=== PATIENT | female | born 2000 | race Caucasian/White ===

== ENCOUNTER → 2023-08-24 08:07 | Outpatient (BNVA) | payer BC, MEDICAID, SELFPAY | PROVIDERS: Family Provider Nurse Practitioner Family; PCP Nurse Practitioner Family; Visit Provider Nurse Practitioner Women's Health | DX: Z34.90 Encounter for supervision of normal pregnancy, unspecified, unspecified trimester (principal); Z3A.14 14 weeks gestation of pregnancy | CPT/HCPCS: 80307; 81000; 84439; 84443; 84481; 85025; 86592; 86762; 86803; 86850; 86900; 87086; 87340; 87491; 87591; 87806 ==

== ENCOUNTER → 2023-09-06 11:19 | Outpatient (BNVA) | payer BC, MEDICAID, SELFPAY | PROVIDERS: Family Provider Nurse Practitioner Family; PCP Nurse Practitioner Family; Visit Provider Obstetrics & Gynecology | DX: Z3A.14 14 weeks gestation of pregnancy (principal); Z34.00 Encounter for supervision of normal first pregnancy, unspecified trimester | CPT/HCPCS: 84315; 87624 ==

== ENCOUNTER → 2023-10-05 13:20 | Outpatient (BNVA) | payer BC, MEDICAID, SELFPAY | PROVIDERS: Family Provider Nurse Practitioner Family; PCP Nurse Practitioner Family; Visit Provider Obstetrics & Gynecology | DX: Z36.87 Encounter for antenatal screening for uncertain dates (principal) | CPT/HCPCS: 76805 ==

== ENCOUNTER → 2023-10-13 12:44 | Outpatient (BNVA) | payer BC, MEDICAID, SELFPAY | PROVIDERS: Family Provider Nurse Practitioner Family; PCP Nurse Practitioner Family; Visit Provider Obstetrics & Gynecology | DX: Z3A.14 14 weeks gestation of pregnancy (principal); Z34.90 Encounter for supervision of normal pregnancy, unspecified, unspecified trimester | CPT/HCPCS: 84315; 87086 ==

== ENCOUNTER → 2023-11-04 12:32 | Outpatient (BNVA) | payer BC, MEDICAID, SELFPAY | PROVIDERS: Family Provider Nurse Practitioner Family; PCP Nurse Practitioner Family; Visit Provider Nurse Practitioner Women's Health | DX: Z34.90 Encounter for supervision of normal pregnancy, unspecified, unspecified trimester | CPT/HCPCS: 76816; 84315 ==

== ENCOUNTER → 2023-12-01 07:53 | Outpatient (BNVA) | payer BC, MEDICAID, SELFPAY | PROVIDERS: Family Provider Nurse Practitioner Family; PCP Nurse Practitioner Family; Visit Provider Obstetrics & Gynecology | DX: Z3A.24 24 weeks gestation of pregnancy (principal); Z34.92 Encounter for supervision of normal pregnancy, unspecified, second trimester | CPT/HCPCS: 82950; 84315 ==

== ENCOUNTER → 2023-12-07 09:20 | Outpatient (BNVA) | payer BC, MEDICAID, SELFPAY | PROVIDERS: Family Provider Nurse Practitioner Family; PCP Nurse Practitioner Family; Visit Provider Obstetrics & Gynecology | DX: Z36.9 Encounter for antenatal screening, unspecified (principal) | CPT/HCPCS: 76816 ==

== ENCOUNTER 2024-01-11 14:45 | Outpatient (CLI) | payer BC, MEDICAID, SELFPAY ==
[2024-01-11 15:03] VITALS: BMI 38.0
[2024-01-11 15:12] VITALS: BP 140/77; PULSE 89
[2024-01-11 15:31] VITALS: BP 126/74; PULSE 100
[2024-01-11 15:52] VITALS: BP 128/79; PULSE 97
== END 2024-01-11 16:08 | disposition home or self-care (01) ==
LOC: OPOB 14:55 → OBGYN 15:01
PROVIDERS: Family Provider Nurse Practitioner Family; PCP Nurse Practitioner Family; Visit Provider Obstetrics & Gynecology
DX: O26.899 Other specified pregnancy related conditions, unspecified trimester (principal); Z3A.00 Weeks of gestation of pregnancy not specified; R80.9 Proteinuria, unspecified
CPT/HCPCS: 59025; 84315; 99211

== ENCOUNTER → 2024-01-25 09:52 | Outpatient (BNVA) | payer BC, MEDICAID, SELFPAY | PROVIDERS: Family Provider Nurse Practitioner Family; PCP Nurse Practitioner Family; Visit Provider Obstetrics & Gynecology | DX: Z34.90 Encounter for supervision of normal pregnancy, unspecified, unspecified trimester (principal) | CPT/HCPCS: 84315; 87081 ==

== ENCOUNTER 2024-02-08 15:20 | Outpatient (CLI) | payer BC, MEDICAID, SELFPAY ==
[2024-02-08 15:34] VITALS: BP 145/83; PULSE 77; RESP 16; TEMP 36.2; O2SAT 98
[2024-02-08 15:38] VITALS: BMI 39.1
[2024-02-08 15:49] VITALS: BP 147/80; PULSE 87
[2024-02-08 16:04] VITALS: BP 146/82; PULSE 81
[2024-02-08 16:19] VITALS: BP 145/81; PULSE 82
== END 2024-02-08 17:03 | disposition home or self-care (01) ==
LOC: OPOB 15:22 → OBGYN 15:32
PROVIDERS: Family Provider Nurse Practitioner Family; PCP Nurse Practitioner Family; Visit Provider Obstetrics & Gynecology
DX: O16.9 Unspecified maternal hypertension, unspecified trimester (principal); Z3A.00 Weeks of gestation of pregnancy not specified
CPT/HCPCS: 59025; 99211

== ENCOUNTER 2024-02-08 19:20 | Outpatient (CLI) | payer BC, MEDICAID, SELFPAY ==
[2024-02-08] VITALS (10 sets, daily range): BP systolic 96–135; BP diastolic 54–84; PULSE 78–100; RESP 16; BMI 39.1
[2024-02-08 20:15] LABS: Basophils % 0.4 %; Eosinophils % 0.4 %; Hematocrit 33.4 % (36-47); Lymphocytes # 1.6 10^3/uL (0.8-4.8); Lymphocytes % 14.5 %; Mean Corpuscular HGB Conc 34.4 g/dL (30-55); Mean Corpuscular Hemoglobin 31.6 pg (27-33); Mean Corpuscular Volume 91.8 fl (85-98); Mean Platelet Volume 10.4 fL (7.4-10.4); Monocytes # 0.7 10^3/uL (0.2-0.9); Monocytes % 5.9 %; Neutrophils # 8.85 10^3/uL (1.8-7.7); Neutrophils % 78.4 %; Nucleated Red Blood Cells % 0 %; Platelet Count 268 10^3/cmm (157-399); Red Blood Count 3.64 10^6/uL (3.85-5.65); Red Cell Distribution Width 13.4 % (12.1-15.1); White Blood Count 11.26 10^3/uL (3.29-11.43)
[2024-02-08 20:44] LABS: Add Urine Microscopic? YES; Bilirubin Urine Neg (Negative); Blood Urine Neg (Negative); Glucose Urine UA Norm (Normal); Ketones Urine 2+ (Negative); Leukocyte Esterase Urine Negative (Negative); Nitrate Urine Negative (Negative); Protein Urine 1+ (Negative); Urine Appearance Cloudy (CLEAR); Urine Color Yellow (Yellow); Urobilinogen Urine 1 mg/dL (Negative); pH Urine 5 (5-7)
[2024-02-08 20:45] LABS: Add Urine Culture? No; Bacteria Urine 3+ /hpf; Mucus Urine 2+ /hpf; RBC Urine 0-4 /hpf (0-2); Squamous Epithelial Cell Urine 25-40 /hpf (0-5); WBC Urine 0-4 /hpf (0-5)
[2024-02-08 20:52] LABS: Alanine Aminotransferase 6 U/L (0-33); Albumin Level 3.7 g/dL (3.5-5.2); Alkaline Phosphatase 219 U/L (35-105); Anion Gap 13.5 (5-19); Aspartate Amino Transferase 17 U/L (0-32); Blood Urea Nitrogen 8 mg/dL (6-20); Calcium 9.4 mg/dL (8.5-10.5); Carbon Dioxide 21 mmol/L (22-29); Chloride 106 mmol/L (98-107); Creatinine Clr Calc Pharmacy 208.4465; Globulin 2.9 g/dL (1.3-4.6); Glomerular Filtration Rate 155.7 mL/min (90-130); Glucose 122 mg/dL (65-115); Osmolality Calculated 284 mOsm/kg (285-295); Potassium 3.5 mmol/L (3.5-5.1); Sodium 137 mmol/L (136-145); Total Bilirubin 0.2 mg/dL (0.15-1.2); Total Protein 6.6 g/dL (6.6-8.7); Uric Acid 4.9 mg/dL (2.4-5.7)
[2024-02-08 20:58] LABS: Urine Creatinine 370 mg/dL (28-217)
[2024-02-08 21:05] LABS: UPRO/UCREAT Ratio 0.24 mg/mg CR; Urine Protein Random 89 mg/dL
[2024-02-08] MEDS: NIFEdipine 10 mg Capsule 30 MG PO (22:08)
== END 2024-02-08 23:22 | disposition home or self-care (01) ==
LOC: OPOB 19:33 → OBGYN 23:12
PROVIDERS: Obstetrics & Gynecology; Family Provider Nurse Practitioner Family; PCP Nurse Practitioner Family; Visit Provider Obstetrics & Gynecology
DX: O26.899 Other specified pregnancy related conditions, unspecified trimester (principal); Z3A.00 Weeks of gestation of pregnancy not specified
CPT/HCPCS: 36415; 59025; 80053; 81001; 82570; 84156; 84315; 84550; 85025; 99211

== ENCOUNTER 2024-02-16 11:23 | Inpatient (IN) | payer BC, MEDICAID, SELFPAY ==
[2024-02-15] VITALS (32 sets, daily range): BP systolic 108–141; BP diastolic 56–94; PULSE 66–100; RESP 15; TEMP 36.5–36.7; BMI 39.6
[2024-02-15 18:19] LABS: Basophils % 0.2 %; Eosinophils % 0.3 %; Hematocrit 35.9 % (36-47); Lymphocytes # 1.6 10^3/uL (0.8-4.8); Lymphocytes % 12.6 %; Mean Corpuscular HGB Conc 34.3 g/dL (30-55); Mean Corpuscular Hemoglobin 31.5 pg (27-33); Mean Corpuscular Volume 91.8 fl (85-98); Mean Platelet Volume 10.5 fL (7.4-10.4); Monocytes # 0.8 10^3/uL (0.2-0.9); Monocytes % 6.3 %; Neutrophils # 9.87 10^3/uL (1.8-7.7); Neutrophils % 80.3 %; Nucleated Red Blood Cells % 0 %; Platelet Count 277 10^3/cmm (157-399); Red Blood Count 3.91 10^6/uL (3.85-5.65); Red Cell Distribution Width 13.5 % (12.1-15.1)
--- NOTE | 2024-02-15 18:50 | P.HP_ITS ---
Providers/Chief Complaint 2 Admitting Physician: Ryan Andrews MD Primary HORSE RACETRACK MANAGER: Ryan Andrews MD Primary Care Provider: WARD Mcgee Chief Complaint: Monitoring HPI HORSE RACETRACK MANAGER History of Present Illness Smitha Sheehan is a 23 year old female G1 EDC February 19, 2024 At 39 w 3 d No c/o + movements No headaches, blurry vision, abdominal pain No uterine contractions, fluid leakage Present Details : 1 Para: 0 Labs Rubella: Immune RPR: Negative GBS: Positive Medications/Allergies Home Medications Medication Instructions Recorded Confirmed Last Taken Type sertraline 50 mg tablet 50 mg PO DAILY 11/04/23 02/15/24 02/08/24 History Allergies Allergy/AdvReac Type Severity Reaction Status Date / Time No Known Allergies Allergy Verified 02/15/24 11:09 PFSH HORSE RACETRACK MANAGER 2 PFSH: Family History Denies family history of Colon cancer Ovarian cancer Diabetes Heart disease Breast cancer Hypertension Uterine cancer Thyroid disease Social History Smoking and tobacco/nicotine status: never used tobacco/nicotine History History History 2 1 Term 0 Miscarriages/Ectopic Living Children Care TYRA Calculator 2 Estimated Delivery Date Method Current WG Current Estimate 02/19/24 LMP (Certain) 39w 4d Vitals/I&O/Wt Last Vital Signs Temp 98.1 F 02/15/24 23:20 Pulse 64 02/16/24 03:25 Resp 15 02/15/24 15:51 BP 118/67 02/16/24 03:25 O2 Del Method Room Air 02/16/24 01:35 02/15/24 02/15/24 02/16/24 14:59 22:59 06:59 Intake Total 9.850 / 9.850 1020.833 / 1030.683 Balance 9.850 / 9.850 1020.833 / 1030.683 Weight last 48 hrs Weight 231 lb Physical Exam 2 Narrative: Weight 231 lbs; 5?4? BPs 138 / 88, 139 / 83, 140 / 86, 134 / 85 General: comfortable, awake, alert Lungs: clear Cor: RRR Abd: nontender Cervix: 2 cm / 50 % / -3 / posterior Ext: 2 + edema External monitor: heart tracing good variability, + accelerations Data 02/15/24 18:05 Results Labs OB ([facility]): 2 Obstetrics US 12/07/23 Blood Type A Positive 02/15/24 Antibody Screen Negative 02/15/24 Hct 35.9 % (36-47) L 02/15/24 Hgb 12.30 g/dL (11.27-16.99) 02/15/24 Rho(D) Type Rh positive 02/15/24 Plt Count 277 10^3/cmm (157-399) 02/15/24 Hep Bs Antigen Non-reactive (Nonreactive) 08/24/23 Hepatitis C Antibody Non-reactive (Nonreactive) 08/24/23 Rubella IgG Antibody 195.0 IU/mL (0.0-10.0) H 08/24/23 RPR Nonreactive (Nonreactive) 08/24/23 HIV 1&2 Ab & HIV 1 Ag Non-reactive (Non-Reactiv) 08/24/23 TSH 3.61 uIU/mL (0.27-4.20) 08/24/23 Free T4 1.03 ng/dL (0.82-1.77) 08/24/23 C.trachomatis RNA (TMA) Not detected (NOT DETECTED) N.gonorrhoeae RNA (TMA) Not detected (NOT DETECTED) T. vaginalis Amp RNA Not detected (NOT DETECTED) 08/24/23 Chlamydia/GC Comment See note 08/24/23 Cystic Fibrosis Screen Negative 08/24/23 Glucose 1 Hr 50 gm 130 mg/dL (85-140) 12/01/23 Uric Acid 4.9 mg/dL (2.4-5.7) 02/08/24 Urine Opiates Screen Negative ng/mL (Negative) 08/24/23 Ur Barbiturates Screen Negative ng/mL (Negative) 08/24/23 Ur Phencyclidine Scrn Negative ng/mL (Negative) 08/24/23 Ur Amphetamines Screen Negative ng/mL (Negative) 08/24/23 U Benzodiazepines Scrn Negative ng/mL (Negative) 08/24/23 Urine Cocaine Screen Negative ng/mL (Negative) 08/24/23 U Marijuana (THC) Screen Negative ng/mL (Negative) 08/24/23 Micro Urine Specimen 10/13/23 Pap Smear Interpret See note 09/06/23 A&P Assessment and plan (1) : 39 w 3 d Elevated BPs, mild Patient at 39 w 3 d with consistent mildly elevated BPs No severe features Plan admit for labor induction Qualifiers: Weeks of gestation: 24 weeks Qualified Code(s): Z3A.24 - 24 weeks gestation of (2) GBS carrier: Plan start Abx per protocol when in active labor Attestations 2 Medical Necessity Statement*: patient at 39 w 3 d with elevated BPs, admitted for induction of labor Coding Level of Care Code Acute Code for Chg Fwd Diagnoses 24 weeks gestation of Z3A.24 Weeks of gestation: 24 weeks GBS carrier Z22.330 Time Spent (min) 60
[2024-02-15] MEDS: ampicillin 2,000 MG in sodium chloride 0.9% (plus) 50 ML 100 MG IV (18:59)
[2024-02-15] MEDS: dextrose 5%-lactated ringers 1,000 ML 125 ML IV (18:59)
[2024-02-15] MEDS: oxytocin 30 UNIT/500 ML BAG IV (18:59)
[2024-02-15] MEDS: ampicillin 1,000 MG in sodium chloride 0.9% (plus) 50 ML 100 MG IV (22:35)
[2024-02-16] VITALS (144 sets, daily range): BP systolic 94–212; BP diastolic 52–109; PULSE 57–196; RESP 16; TEMP 35.9–36.8; O2SAT 94–99
[2024-02-16] MEDS: ampicillin 1,000 MG in sodium chloride 0.9% (plus) 50 ML 100 MG IV ×4 (02:45→15:01)
[2024-02-16] MEDS: dextrose 5%-lactated ringers 1,000 ML 125 ML IV ×2 (02:46→13:52)
[2024-02-16] MEDS: fentaNYL 50 mcg/mL INJ 2mL IVP (09:04)
[2024-02-16] MEDS: lactated ringers 1,000 ML 999 ML IV (09:33)
[2024-02-16] MEDS: ondansetron 2 mg/ML SDV 2 mL 4 MG IVP ×2 (09:52→14:01)
--- NOTE | 2024-02-16 10:10 | P.ANESASSM_ITS ---
Pre-Anesthetic Assessment Height/Weight: Height 1.63 m Weight 104.78 kg Temp Pulse Resp BP Pulse Ox O2 Del Method 98.1 F 76 16 134/75 97 Room Air 02/15/24 23:20 02/16/24 10:32 02/16/24 09:04 02/16/24 10:32 02/16/24 10:30 02/16/24 06:58 Preop Diagnosis: IUP epidural Familial anesthetic complications: none Was Beta Earnest taken within 24 hours: N/A Was Clonidine taken within 24 hours: N/A Last Intake: 07:00 Social No alcohol and No tobacco Exam alert and oriented x 3 Airway Submandibular: within normal limits Cervical ROM: within normal limits Mallampati: Class II Dentition: full History/ROS No significant complaints CV/HEM PIH at the end of Anesthetic Plan ASA status: 2 Anesthesia: Anesthesia Evaluation, General and Regional (specify below) Medications/Allergies Home Medications Medication Instructions Recorded Confirmed Last Taken Type sertraline 50 mg tablet 50 mg PO DAILY 11/04/23 02/15/24 02/08/24 History Allergies Allergy/AdvReac Type Severity Reaction Status Date / Time No Known Allergies Allergy Verified 02/15/24 11:09 Current Medications Generic Name Dose Route Start Last Admin Trade Name Freq PRN Reason Stop Dose Admin Fentanyl 25 - 100 mcg 02/16/24 08:58 02/16/24 09:04 Fentanyl 50 Mcg/Ml Inj 2ml IVP 25 mcg Q1H PRN Administration SEVERE PAIN Dextrose/Lactated Ringer's 1,000 mls @ 125 mls/hr 02/15/24 18:00 02/16/24 02:46 Dextrose 5%-Lactated Ringers IV 125 mls/hr .Q8H BRI Administration Ampicillin Sodium 1,000 mg/ 50 mls @ 100 mls/hr 02/15/24 22:15 02/16/24 06:19 Sodium Chloride IV 100 mls/hr Q4H BRI Administration Protocol Oxytocin 30 unit in 500 mls @ 1 mls/hr 02/15/24 18:45 02/16/24 08:09 Pitocin IV 1 milliunit/min .Q24H BRI 1 mls/hr Titration Protocol 1 MILLIUNIT/MIN Lactated Ringer's 1,000 mls @ 999 mls/hr 02/16/24 09:06 02/16/24 09:33 Lactated Ringers IV 999 mls/hr .Q1H1M PRN Administration See label comments Ondansetron HCl 4 mg 02/15/24 17:52 02/16/24 09:52 Ondansetron 2 Mg/Ml Sdv 2 Ml IVP 4 mg Q4H PRN Administration NAUSEA AND VOMITING PFSH Anesthesia Family History Denies family history of Colon cancer Ovarian cancer Diabetes Heart disease Breast cancer Hypertension Uterine cancer Thyroid disease Social History Smoking and tobacco/nicotine status: never used tobacco/nicotine Female Reproductive History : 1 Data Anesthesia 02/15/24 18:05 Short CBC 02/15/24 Range/Units 18:05 WBC 12.30 H (3.29-11.43) 10^3/uL Hgb 12.30 (11.27-16.99) g/dL Hct 35.9 L (36-47) % MCV 91.8 (85-98) fl Plt Count 277 (157-399) 10^3/cmm Neut % (Auto) 80.3 % Neut # (Auto) 9.87 H (1.8-7.7) 10^3/uL Blood Bank 02/15/24 18:05 Blood Type A Positive Rho(D) Type Rh positive Antibody Screen Negative Cardiac Studies: 2 No Data to Display
--- NOTE | 2024-02-16 10:34 | ANES.PROC ---
Anesthesia Procedures Procedure/Date: 02/16/24 Epidural: Time Out Performed: Yes Consents Signed: Procedure Consent Consent: from patient, risks and benefits reviewed and patient agrees to proceed Lumbar Level: L3-L4 Epidural position: sitting Epidural procedure: sterile prep of area, 1% lidocaine to numb the area, 18 g needle, negative for paresthesia passed, neg for paresthesia, test dose given, 1.5% xylocaine 1:200k epi, placed PCEA, no systemic response, sterile dressing applied, L.U.D. no apparent complications and 0.2% Ropiavacaine @ mls/hr (13) Additional Comments: CAROL at 5.5, negative aspiration. taped at 12 at skin, several redirection attempts before CAROL obtained. pt tolerated well.
[2024-02-16] MEDS: ROPivacaine syringe 100 MG/50 ML SYRINGE 10 MG EPIDURAL (10:38)
[2024-02-16] MEDS: ROPivacaine syringe 100 MG/50 ML SYRINGE 13 MG EPIDURAL ×2 (13:49→15:40)
--- NOTE | 2024-02-16 14:50 | PM.MISC ---
Miscellaneous Note Purpose of Documentation: Pain Note: Called for L lower quadrant pain. Patient states she had no pain after epidural placement, but in the last two hours has been L Lower quadrant pain. Bupivicaine 0.25% 10 cc and 5 cc bolus from epidural pump administered. Bolus dose increased to 6 cc. Only mild improvement. Upon further questioning, it became apparent the patient is experiencing this pain constantly, even when she is not having contractions. Multiple possible etiologies, patient may be experiencing pain from positioning, position may be contributing, possible nerve root irritation from epidural or epidural catheter manipulation. Will continue to monitor patient.
--- NOTE | 2024-02-16 18:10 | PM.DELIVERY ---
Delivery Note: Date of delivery: February 16, 2024 Pre-delivery diagnoses: 39 w 3 d elevated BPs induction of labor Post-delivery diagnoses: 39 w 3 d elevated BPs induction of labor vaginal delivery repair of second-degree perineal and vaginal lacerations Procedure: induction of labor vaginal delivery repair of second-degree perineal and vaginal lacerations Op report anesthesia: Epidural Delivering Physician: Ryan Andrews MD Estimated blood loss (mL): 300 Findings: , vigorous female infant Cord gases and blood obtained Normal placenta and cord Second-degree perineal / vaginal lacerations repaired in layers EBL: 300 cc No complications Pre-Delivery Course: normal labor course Delivery: vaginal Post-Delivery Status: good History History History 1 Term 0 Miscarriages/Ectopic Living Children A&P Assessment and plan (1) Vaginal delivery: plan care Coding Level of Care Code Acute Code for Chg Fwd Diagnoses Vaginal delivery O80 Time Spent (min) 60
[2024-02-16] MEDS: benzocaine-menthol 78 gm Canister 1 SPRAY TOPICAL (20:20)
[2024-02-16] MEDS: ibuprofen 800 mg tablet PO (20:20)
[2024-02-17] VITALS (7 sets, daily range): BP systolic 125–140; BP diastolic 77–87; PULSE 73–86; RESP 15–16; TEMP 36.4–37.2; O2SAT 97–99
[2024-02-17 07:26] LABS: Hematocrit 30.8 % (36-47); Mean Corpuscular HGB Conc 33.1 g/dL (30-55); Mean Corpuscular Hemoglobin 31.1 pg (27-33); Mean Corpuscular Volume 93.9 fl (85-98); Mean Platelet Volume 10.4 fL (7.4-10.4); Platelet Count 281 10^3/cmm (157-399); Red Blood Count 3.28 10^6/uL (3.85-5.65); Red Cell Distribution Width 13.8 % (12.1-15.1); White Blood Count 14.32 10^3/uL (3.29-11.43)
[2024-02-17] MEDS: docusate sodium 100 mg Capsule PO (08:29)
[2024-02-17] MEDS: ibuprofen 800 mg tablet PO ×2 (08:29→15:12)
[2024-02-17] MEDS: PRENATAL VIT NO.130/IRON/FOLIC 1 EACH TABLET PO (08:29)
--- NOTE | 2024-02-17 10:13 | ANE.PACU2 ---
Inpatient post-anesthesia follow up: Airway intact: Yes Vital signs: Temperature 98.0 F Pulse Rate 73 Respiratory Rate 16 Blood Pressure 133/84 Pulse Oximetry 99 Oxygen Delivery Me thod Room Air Oxygen Flow Rate Fraction of Inspir ed Oxygen Hydration adequate: Yes Nausea and vomiting: No Pain level: 1 Mental status: Baseline Additional Comments: No residual L groin/quadrant pain Epidural Start/End: Epidural Start Date: 02/16/24 Epidural Start Time: 10:10 Epidural End Date: 02/16/24 Epidural End Time: 18:38
--- NOTE | 2024-02-17 12:15 | P.PN_ITS ---
[employer] Subjective 2 Subjective: Interval history: no c/o no bleeding, pain eating, voiding, ambulating well caring for without any problems Labor: Station: +1 Amniotic Membrane Status: Ruptured Monitor Mode: External Contraction Pattern: Regular Vitals/I&O/Wt Last Vital Signs Temp 98.9 F 02/17/24 19:53 Pulse 86 02/17/24 19:53 Resp 16 02/17/24 19:53 BP 140/77 02/17/24 19:53 Pulse Ox 98 02/17/24 19:53 O2 Del Method Room Air 02/17/24 19:43 Physical Exam 2 Narrative: afebrile, VS normal comfortable, awake, alert Abd: soft, nontender. fundus firm Ext: no edema; nontender Urinary Catheter Management: Oquendo: Cath Placed During This Visit: yes, but has since been removed by the nurse Reason for Continuing Indwelling Catheter: Decision to DC Catheter Urinary Catheter Date of Insertion: 02/16/24 Urinary Catheter Time of Insertion: 11:05 Date Urinary Catheter Removed: 02/16/24 Time Urinary Catheter Discontinued: 17:00 Data 02/17/24 07:13 A&P Assessment and plan (1) Vaginal delivery: PPD #1 doing well discharge to home today instructions and precautions given call/return if fever, chills, headache, blurry vision, nausea, vomiting, abdominal pain; vaginal bleeding or discharge; shortness of breath, chest pain, leg pains or swelling; inability to void, perineal pain or swelling; feelings of depression or mood changes; thoughts of suicide or harming others; inability to care for baby. f/u in 6 weeks or PRN Attestations 2 Medical Necessity Statement*: patient s/p vaginal delivery, plan to discharge to home today Coding Level of Care Code Acute Code for Chg Fwd Diagnoses Vaginal delivery O80 Time Spent (min) 20
--- NOTE | 2024-02-17 12:20 | P.DS_ITS ---
Discharge Providers CUSTOMER SUCCESS SPECIALIST Date of Admission: 02/16/24 11:23 Date of Discharge: 02/17/24 Attending Provider at Admission: Ryan Andrews MD Attending Provider at Discharge: Ryan Anderws MD Consults: none Primary CUSTOMER SUCCESS SPECIALIST: Ryan Andrews MD Primary Care Provider: WARD Mcgee Diagnoses at Discharge Discharge Diagnosis (1) Vaginal delivery: Details from hospital stay: 23 y.o. G1 at 39 w 3 d noted to have persistent mildly elevated BPs no symptoms of headache, blurry vision admitted for induction of labor cervix was at 2 cm on admission pitocin was given patient progressed to complete dilatation delivered vaginally a vigorous with repair of second-degree perineal and vaginal lacerations patient did well without any complications patient was discharged to home on the first day Status: Acute Reason for Visit Reason for Visit: Monitoring Brief History: 23 y.o. G1 at 39 w 3 d noted to have persistent mildly elevated BPs no symptoms of headache, blurry vision admitted for induction of labor cervix was at 2 cm on admission Hospital Course Hospital Course 23 y.o. G1 at 39 w 3 d noted to have persistent mildly elevated BPs no symptoms of headache, blurry vision admitted for induction of labor cervix was at 2 cm on admission pitocin was given patient progressed to complete dilatation delivered vaginally a vigorous infant with repair of second-degree perineal and vaginal lacerations patient did well without any complications patient was discharged to home on the first day Information Peripartum Data: Delivery Method: Vaginal Laceration description: Perineal - 2nd Degree Episiotomy description: None complications: none Physical Exam Narrative: afebrile, VS normal comfortable, awake, alert Abd: soft, nontender. fundus firm Ext: no edema; nontender Urinary Catheter Management: Oquendo: Cath Placed During This Visit: yes, but has since been removed by the nurse Reason for Continuing Indwelling Catheter: Decision to DC Catheter Urinary Catheter Date of Insertion: 02/16/24 Urinary Catheter Time of Insertion: 11:05 Date Urinary Catheter Removed: 02/16/24 Time Urinary Catheter Discontinued: 17:00 History History History 1 Term 0 Miscarriages/Ectopic Living Children Discharge Data Studies Completed and Pending Laboratory Results WBC 14.32 10^3/uL (3.29-11.43) H 02/17/24 07:13 RBC 3.28 10^6/uL (3.85-5.65) L 02/17/24 07:13 Hgb 10.20 g/dL (11.27-16.99) L 02/17/24 07:13 Hct 30.8 % (36-47) L 02/17/24 07:13 MCV 93.9 fl (85-98) 02/17/24 07:13 MCH 31.1 pg (27-33) 02/17/24 07:13 MCHC 33.1 g/dL (30-55) 02/17/24 07:13 RDW 13.8 % (12.1-15.1) 02/17/24 07:13 Plt Count 281 10^3/cmm (157-399) 02/17/24 07:13 MPV 10.4 fL (7.4-10.4) 02/17/24 07:13 Neut % (Auto) 80.3 % 02/15/24 18:05 Lymph % (Auto) 12.6 % 02/15/24 18:05 Citrus % (Auto) 6.3 % 02/15/24 18:05 Eos % (Auto) 0.3 % 02/15/24 18:05 Baso % (Auto) 0.2 % 02/15/24 18:05 Neut # (Auto) 9.87 10^3/uL (1.8-7.7) H 02/15/24 18:05 Lymph # (Auto) 1.6 10^3/uL (0.8-4.8) 02/15/24 18:05 Citrus # (Auto) 0.8 10^3/uL (0.2-0.9) 02/15/24 18:05 Eos # (Auto) 0.0 10^3/uL (0.0-0.8) 02/15/24 18:05 Baso # (Auto) 0.0 10^3/uL (0.0-0.1) 02/15/24 18:05 Nucleated RBC % (auto) 0 % 02/15/24 18:05 Nucleated RBCs # 0.0 /100WBC 02/15/24 18:05 Blood Type A Positive 02/15/24 18:05 Rho(D) Type Rh positive 02/15/24 18:05 Antibody Screen Negative 02/15/24 18:05 Procedures Performed induction of labor vaginal delivery repair of second-degree perineal and vaginal lacerations Vitals Last Vital Signs Temp 98.9 F 02/17/24 19:53 Pulse 86 02/17/24 19:53 Resp 16 02/17/24 19:53 BP 140/77 02/17/24 19:53 Pulse Ox 98 02/17/24 19:53 O2 Del Method Room Air 02/17/24 19:43 Results Labs OB ([facility]): Obstetrics US 12/07/23 Blood Type A Positive 02/15/24 Antibody Screen Negative 02/15/24 Hct 30.8 % (36-47) L 02/17/24 Hgb 10.20 g/dL (11.27-16.99) L 02/17/24 Rho(D) Type Rh positive 02/15/24 Plt Count 281 10^3/cmm (157-399) 02/17/24 Hep Bs Antigen Non-reactive (Nonreactive) 08/24/23 Hepatitis C Antibody Non-reactive (Nonreactive) 08/24/23 Rubella IgG Antibody 195.0 IU/mL (0.0-10.0) H 08/24/23 RPR Nonreactive (Nonreactive) 08/24/23 HIV 1&2 Ab & HIV 1 Ag Non-reactive (Non-Reactiv) 08/24/23 TSH 3.61 uIU/mL (0.27-4.20) 08/24/23 Free T4 1.03 ng/dL (0.82-1.77) 08/24/23 C.trachomatis RNA (TMA) Not detected (NOT DETECTED) N.gonorrhoeae RNA (TMA) Not detected (NOT DETECTED) T. vaginalis Amp RNA Not detected (NOT DETECTED) 08/24/23 Chlamydia/GC Comment See note 08/24/23 Cystic Fibrosis Screen Negative 08/24/23 Glucose 1 Hr 50 gm 130 mg/dL (85-140) 12/01/23 Uric Acid 4.9 mg/dL (2.4-5.7) 02/08/24 Urine Opiates Screen Negative ng/mL (Negative) 08/24/23 Ur Barbiturates Screen Negative ng/mL (Negative) 08/24/23 Ur Phencyclidine Scrn Negative ng/mL (Negative) 08/24/23 Ur Amphetamines Screen Negative ng/mL (Negative) 08/24/23 U Benzodiazepines Scrn Negative ng/mL (Negative) 08/24/23 Urine Cocaine Screen Negative ng/mL (Negative) 08/24/23 U Marijuana (THC) Screen Negative ng/mL (Negative) 08/24/23 Micro Urine Specimen 10/13/23 Pap Smear Interpret See note 09/06/23 Discharge Plan Discharge Patient Disposition: Home Condition: Stable Prescriptions: Continued sertraline 50 mg tablet 50 mg PO DAILY Discharge Orders: Discharge Order (Routine); Ordered 02/17/24 Ordered By: Ryan Andrews Referrals: Ryan Andrews MD [Physician] - 03/29/24 1:45 pm Discharge Diet: Usual diet Discharge Activity: Increase activity as tolerated Patient Instructions: Depression (DC), Bleeding (DC), Preeclampsia and Eclampsia After Delivery (GEN), OB Discharge Report, OB Food/Drug Interaction Guide, Opioid Safety, OB Home Care, OB Proud Parent Packet, OB Vaginal Deliveries - [facility] Discharge Attestations CUSTOMER SUCCESS SPECIALIST Time Spent in Discharge Care*: less than 30 min Coding Level of Care Code Acute Code for Chg Fwd Diagnoses Vaginal delivery O80 Time Spent (min) 20
== END 2024-02-17 19:53 | disposition home or self-care (01) | DRG 807 ==
LOC: OPOB 11:24 → OBGYN 11:24
PROVIDERS: Admitting Provider Obstetrics & Gynecology; PCP Nurse Practitioner Family; Visit Provider Obstetrics & Gynecology
DX: O99.824 Streptococcus B carrier state complicating childbirth (principal); Z37.0 Single live birth; Z3A.39 39 weeks gestation of pregnancy; O70.1 Second degree perineal laceration during delivery; R03.0 Elevated blood-pressure reading, without diagnosis of hypertension; O75.89 Other specified complications of labor and delivery
CPT/HCPCS: 36415; 51702; 59025; 59409; 84315; 85025; 85027; 86850; 86900; 96374; 96376; 99211; J0290; J2405; J2590; J2795; J3010; J7120; J7121

== ENCOUNTER 2024-05-18 22:50 | Inpatient (IN) | payer BC, MEDICAID, SELFPAY ==
[2024-05-18 22:51] VITALS: BP 155/115; PULSE 86; RESP 18; TEMP 36.7; O2SAT 99; BMI 30.9
--- NOTE | 2024-05-18 23:01 | ECG_ITS ---
[facility] Test Date: 2024-05-18 Pat Name: Smitha Sheehan Department: Room: Gender: Female Acds Block 1 Operator: : 2000 Requested By: Kalyn Alvarez Order Number: [id number] Gonsalves MD: Sanjeev Regan M.D. Measurements Intervals [place] Rate: 88 P: 24 MO: 135 QRS: -16 QRSD: 89 T: 31 QT: 323 QTc: 392 Interpretive Statements SINUS RHYTHM WITH SINUS ARRHYTHMIA VOLTAGE CRITERIA FOR LVH [MEETS CRITERIA IN ONE OF: R(aVL), S(V1), R(V5), R(V5/V6)+S(V1)] No previous ECG available for comparison Electronically Signed On 05-19-2024 20:23:15 CDT by Sanjeev Regan M.D. [id number]
--- NOTE | 2024-05-18 23:08 | PC.NURSE ---
officer stated in triage that [place] [address] talking about walking into traffic
[2024-05-18 23:15] LABS: Bilirubin Urine Negative (Negative); Blood Urine 3+ (Negative); Glucose Urine UA Negative (Normal); Ketones Urine Trace (Negative); Leukocyte Esterase Urine 2+ (Negative); Nitrate Urine Negative (Negative); Protein Urine 2+ (Negative); Urine Appearance Cloudy (CLEAR); Urine Color Yellow (Yellow); pH Urine 5.5 (5-7)
[2024-05-18 23:20] LABS: Bacteria Urine 2+ /hpf; Hyaline Casts Urine 2.87 /lpf; RBC Urine >100 /hpf (0-2); Specific Gravity, Urine 1.036 (1.005-1.030); WBC Urine 21-50 /hpf (0-5)
[2024-05-18 23:21] LABS: Add Urine Culture? No
[2024-05-18 23:22] LABS: Amphetamines Screen Urine Negative (Negative); Barbiturates Screen Urine Negative (Negative); Benzodiazepines Screen Urine Negative (Negative); Cocaine Screen Urine Negative (Negative); Opiate Screen Urine Negative (Negative); PCP Screen Urine Negative (Negative); THC Screen Urine Positive (Negative)
[2024-05-18 23:41] LABS: Basophils # 0.1 10^3/uL (0.0-0.1); Basophils % 0.9 %; Eosinophils % 0.4 %; Hematocrit 42.4 % (36-47); Lymphocytes # 1.7 10^3/uL (0.8-4.8); Lymphocytes % 16.7 %; Mean Corpuscular HGB Conc 32.8 g/dL (30-55); Mean Corpuscular Hemoglobin 29.5 pg (27-33); Mean Platelet Volume 9.2 fL (7.4-10.4); Monocytes # 0.6 10^3/uL (0.2-0.9); Monocytes % 5.7 %; Neutrophils # 7.91 10^3/uL (1.8-7.7); Neutrophils % 76.1 %; Nucleated Red Blood Cells % 0 %; Platelet Count 435 10^3/cmm (157-399); Red Blood Count 4.71 10^6/uL (3.85-5.65); Red Cell Distribution Width 13.5 % (12.1-15.1); White Blood Count 10.38 10^3/uL (3.29-11.43)
[2024-05-18 23:51] LABS: HCG, Serum Qual Negative (Negative)
[2024-05-19 00:07] LABS: Acetaminophen < 5.0 ug/mL (10-30); Alanine Aminotransferase 43 U/L (0-33); Alcohol Level < 10 mg/dL (0-10); Alkaline Phosphatase 112 U/L (35-105); Aspartate Amino Transferase 28 U/L (0-32); Blood Urea Nitrogen 17 mg/dL (6-20); Calcium 9.7 mg/dL (8.5-10.5); Carbon Dioxide 25 mmol/L (22-29); Chloride 104 mmol/L (98-107); Creatinine Clr Calc Pharmacy 114.0195; Globulin 3.3 g/dL (1.3-4.6); Glomerular Filtration Rate 89.7 mL/min (90-130); Glucose 105 mg/dL (65-115); Osmolality Calculated 296 mOsm/kg (285-295); Salicylate < 0.3 mg/dL (3-10); Sodium 142 mmol/L (136-145); Total Bilirubin 0.3 mg/dL (0.15-1.2); Total Protein 8.3 g/dL (6.6-8.7)
[2024-05-19 00:12] LABS: Thyroid Stimulating Hormone 3.23 uIU/mL (0.27-4.20)
--- NOTE | 2024-05-19 00:29 | W.ED.PSYCHS ---
HPI - Psych General: Chief Complaint: Psychiatric Symptoms Stated Complaint: MHE Time Seen by Provider: 05/18/24 22:54 History of Present Illness: 24-year-old female presents emergency room by ambulance with police. Apparently according to the police she had said during argument that she wanted to kill herself or thoughts of into traffic and that she may have overdosed on Zofran a couple days ago. The patient denies any of this. She says she may have said something when she was angry to try to get under her scan. Police have written an affidavit. Related Data Home Medications Medication Instructions Recorded Confirmed sertraline 50 mg tablet 50 mg PO DAILY 11/04/23 02/15/24 Allergies Allergy/AdvReac Type Severity Reaction Status Date / Time No Known Allergies Allergy Verified 02/15/24 11:09 Review of Systems Narrative: Constitutional symptoms: Negative except as documented in HPI. Skin symptoms: Negative except as documented in HPI. Eye symptoms: Negative except as documented in HPI. ENMT symptoms: Negative except as documented in HPI. Respiratory symptoms: Negative except as documented in HPI. Cardiovascular symptoms: Negative except as documented in HPI. Gastrointestinal symptoms: Negative except as documented in HPI. Genitourinary symptoms: Negative except as documented in HPI. Musculoskeletal symptoms: Negative except as documented in HPI. Neurologic symptoms: Negative except as documented in HPI. Psychiatric symptoms: Negative except as documented in HPI. Endocrine symptoms: Negative except as documented in HPI. [facility] ED PFSH: Medical History (Updated 05/19/24 @ 00:41 by Kalyn Davila MD) Vaginal delivery GBS carrier Family History Denies family history of Colon cancer Ovarian cancer Diabetes Heart disease Breast cancer Hypertension Uterine cancer Thyroid disease Social History Smoking and tobacco/nicotine status: never used tobacco/nicotine Female Reproductive History: Date of last menstrual period: 05/18/24 Physical Exam Narrative: EXAM NARRATIVE: General: Alert, no acute distress. Skin: Warm, dry. Head: Normocephalic, atraumatic. Neck: Supple, trachea midline. Eye: Extraocular movements are intact. Ears, nose, mouth and throat: mucosa moist. Cardiovascular: Regular, Normal peripheral perfusion. Respiratory: Lungs are clear to auscultation, respirations are non-labored, breath sounds are equal, Symmetrical chest wall expansion. Gastrointestinal: Soft, Nontender, Non distended Musculoskeletal: Normal ROM, no deformity. Neurological: Alert and oriented, No focal neurological deficit observed. Psychiatric: Cooperative, appropriate mood & affect. Course Vital Signs: Vital signs: Vital Signs Temperature 98.1 F 05/18/24 22:51 Pulse Rate 86 05/18/24 22:51 Respiratory Rate 18 05/18/24 22:51 Blood Pressure 155/115 05/18/24 22:51 Pulse Oximetry 99 05/18/24 22:51 [facility] - Psych Medical Decision Making Differential diagnosis: Patient with reported depression and suicidal ideation. concerns for infection, alcohol intoxication, cardiac issues or other medical problems prior to psychiatric admission. Workup: labwork, ekg ordered to evaluate the pathologies and to clear the patient medically prior to psychiatric admission Lab Review: Laboratory results were reviewed and interpreted by myself the emergency room physician. Lab review: - Medically cleared. - EKG shows no ischemic changes. - Blood alcohol level is negative, -Tylenol and salicylate levels are negative. - Drug screen is negative - No signs of infection, urinalysis clear and white count is not elevated - No anemia. - BUN and creatinine are within normal limits. Consultation: Consultation I spoke with Dr. Lindsey who is on-call for psychiatry who agrees to admission. Assessment and plan: Suicidal ideation Depression Urinary tract infection ?Cephalexin emergency room -Admission to neuropsychiatric unit for continued evaluation and treatment. - All lab work was reviewed and interpreted personally by myself, the ER physician - Evaluation and treatment of this problem were appropriate in the emergency setting Lab Data 05/18/24 23:33 05/18/24 23:33 Laboratory Results WBC 10.38 10^3/uL (3.29-11.43) 05/18/24 23: RBC 4.71 10^6/uL (3.85-5.65) 05/18/24 23:33 Hgb 13.90 g/dL (11.27-16.99) 05/18/24 23:33 Hct 42.4 % (36-47) 05/18/24 23:33 MCV 90.0 fl (85-98) 05/18/24 23: MCH 29.5 pg (27-33) 05/18/24 23:33 MCHC 32.8 g/dL (30-55) 05/18/24 23:33 RDW 13.5 % (12.1-15.1) 05/18/24 23:33 Plt Count 435 10^3/cmm (157-399) H 05/18/24 23:33 MPV 9.2 fL (7.4-10.4) 05/18/24 23:33 Neut % (Auto) 76.1 % 05/18/24 23: Lymph % (Auto) 16.7 % 05/18/24 23:33 Schuyler % (Auto) 5.7 % 05/18/24 23:33 Eos % (Auto) 0.4 % 05/18/24 23:33 Baso % (Auto) 0.9 % 05/18/24 23: Neut # (Auto) 7.91 10^3/uL (1.8-7.7) H 05/18/24 23: Lymph # (Auto) 1.7 10^3/uL (0.8-4.8) 05/18/24 23:33 [place]uyler # (Auto) 0.6 10^3/uL (0.2-0.9) 05/18/24 23:33 Eos # (Auto) 0.0 10^3/uL (0.0-0.8) 05/18/24 23: Baso # (Auto) 0.1 10^3/uL (0.0-0.1) 05/18/24 23:33 Nucleated RBC % (auto) 0 % 05/18/24 23: Nucleated RBCs # 0.0 /100WBC 05/18/24 23:33 Sodium 142 mmol/L (136-145) 05/18/24 23:33 Potassium 4.0 mmol/L (3.5-5.1) 05/18/24 23:33 Chloride 104 mmol/L (98-107) 05/18/24 23:33 Carbon Dioxide 25 mmol/L (22-29) 05/18/24 23:33 Anion Gap 17.0 (5-19) 05/18/24 23:33 BUN 17 mg/dL (6-20) 05/18/24 23:33 Creatinine 0.8 mg/dL (0.5-0.9) 05/18/24 23:33 GFR Calculation 89.7 mL/min (90-130) L 05/18/24 23: Glucose 105 mg/dL (65-115) 05/18/24 23: Calculated Osmolality 296 mOsm/kg (285-295) H 05/18/24 23:33 Calcium 9.7 mg/dL (8.5-10.5) 05/18/24: Total Bilirubin 0.3 mg/dL (0.15-1.2) 05/18/24 23: AST 28 U/L (0-32) 05/18/24 23: ALT 43 U/L (0-33) H 05/18/24 23: Alkaline Phosphatase 112 U/L (35-105) H 05/18/24 23: Total Protein 8.3 g/dL (6.6-8.7) 05/18/24 23: Albumin 5.0 g/dL (3.5-5.2) 05/18/24: Globulin 3.3 g/dL (1.3-4.6) 05/18/24 23: TSH 3.23 uIU/mL (0.27-4.20) 05/18/24 23:33 HCG, Qual Negative (Negative) 05/18/24 23: Urine Color Yellow (Yellow) 05/18/24 23:06 Urine Appearance Cloudy (CLEAR) A 05/18/24 23: Urine pH 5.5 (5-7) 05/18/24 23:06 Ur Specific [place] 1.036 (1.005-1.030) H 05/18/24 23:06 Urine Protein 2+ (Negative) A 05/18/24 23: Urine Glucose (UA) Negative (Normal) 05/18/24 23: Urine Ketones Trace (Negative) 05/18/24 23: Urine Blood 3+ (Negative) A 05/18/24 23: Urine Nitrate Negative (Negative) 05/18/24 23: Urine Bilirubin Negative (Negative) 05/18/24 23: Urine Urobilinogen 1.0 mg/dL (Negative) 05/18/24 23:06 Ur Leukocyte Esterase 2+ (Negative) A 05/18/24 23:06 Urine RBC >100 /hpf (0-2) H 05/18/24 23:06 Urine WBC 21-50 /hpf (0-5) H 05/18/24 23:06 Ur Squamous Epith Cells 11-20 /hpf (0-5) 05/18/24 23:06 Amorphous Sediment Not Reportable 05/18/24 23:06 Urine Bacteria 2+ /hpf (NONE) H 05/18/24 23:06 Hyaline Casts 2.87 /lpf 05/18/24 23:06 Salicylates < 0.3 mg/dL (3-10) L 05/18/24 23:33 Urine Opiates Screen Negative ng/mL (Negative) 05/18/24 23:06 Acetaminophen < 5.0 ug/mL (10-30) L 05/18/24 23:33 Ur Barbiturates Screen Negative ng/mL (Negative) 05/18/24 23:06 Ur Phencyclidine Scrn Negative ng/mL (Negative) 05/18/24 23:06 Ur Amphetamines Screen Negative ng/mL (Negative) 05/18/24 23:06 U Benzodiazepines Scrn Negative ng/mL (Negative) 05/18/24 23:06 Urine Cocaine Screen Negative ng/mL (Negative) 05/18/24 23:06 U Marijuana (THC) Screen Positive ng/mL (Negative) H 05/18/24 23:06 Ethyl Alcohol < 10 mg/dL (0-10) 05/18/24 23:33 All radiology interpretation(s) finalized by discharge Discharge Plan Discharge Patient Disposition: Admitted As Inpatient Clinical Impression: Depression, Suicidal ideation Condition: Stable Coding Level of Care Code ED [employer] for Issac Seals
[2024-05-19] MEDS: cephALEXin 500 mg Capsule PO (01:08)
--- NOTE | 2024-05-19 01:11 | PC.NURSE ---
96 Hour Involuntary Hold Patient Rights have been read to the patient and a copy of the same has been provided to her. Patient acknowledges understanding of said Rights. [employer] Alexandre Ruff was present at bedside at the time of presentation of Rights.
[2024-05-19 01:30] VITALS: BP 137/104; PULSE 82; RESP 16; O2SAT 99
[2024-05-19 01:42] VITALS: BP 137/90; PULSE 82; RESP 20; TEMP 36.4; O2SAT 97
[2024-05-19 01:48] VITALS: BP 137/104; PULSE 82; O2SAT 99
[2024-05-19] MEDS: hyDROXYzine 25 mg Capsule 50 MG PO (02:56)
--- NOTE | 2024-05-19 03:02 | PC.NURSE ---
Patient behavior At 0245 Patient came to the nurses desk and said she was scared. This nurse went and sat and visited with her. She stated to the effect that she did not want to be here and that she was scared because she did not know her room mate, which had been sleeping. Patient was tearful. I explained we did not have a private room and that she would have to wait to talk to the psychiatrist to make a plan of her discharged. When this nurse asked what else could be done for her, she asked if she could call her mom. The phones were off and the call was made with no answer. The patient continued to be tearful so offered for her to go the the day room and watch TV and offered her medication, see MAR.
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
--- NOTE | 2024-05-19 05:15 | PC.NURSE ---
pt anx upon admit resting well now resp 16
--- NOTE | 2024-05-19 13:30 | P.NPUHP_ITS ---
Providers/Chief Complaint 2 Admitting Physician: Taye Lindsey MD Primary Care Provider: WARD Mcgee Chief Complaint: MHE HPI NPU History of Present Illness Smitha Sheehan is a 24 year old female who presented to the emergency department at [facility] by ambulance accompanied by police. The patient had apparently made threats to overdose on her medication during an argument that she was having with her current . The patient was admitted to the neuropsychiatric unit for further evaluation and treatment. She had reported that she has been to her but recently 2 days ago and states that she had been forced to reside in her car on the property. She had stated that she recently gave 3 months ago to their daughter. She reports that she had been told by her ex- that she needed to change her behavior in order for them to continue to remain together. She had endorsed that she had severe depression despite being on Zoloft through her and for a few weeks after giving to her daughter. She reported that she had discontinued the Zoloft but reports that her mood has been worse since she had stopped this medication. She had reported no previous history of suicide attempts. She had stated that she had battled depression for a few weeks and reported having low energy and low motivation. She reports no sleep continuity disruption. She did not endorse any current suicidal thoughts but stated that she was trying to get under her 's skin in order to anger him. She had stated that she has struggled with managing social anxiety since she was a child and reports that she feels uncomfortable in social situations and often feels as if she is the center of attention. She had reported that she frequently struggles with being anxious and feeling as if something bad were going to happen to her in social situations. She had reported no recent sleep continuity disruption. She had reported having increased stressors and reported that she had been crying more frequently and had been more sad leading to her losing her job recently. She denied any drug or alcohol use. She had denied having any thoughts of hurting anyone else. She denied any history of mayo. She denied any history of psychotic symptoms. She had denied any history of psychosis. Inpatient psychiatric history: None Outpatient psychiatric history: She had reported receiving psychotherapy at the age of 15 along with her brother due to anxiety. She had reported having previous trial of Paxil to manage anxiety started more than a year ago but eventually switched to Zoloft when she learned that she was . There is no history of suicide attempts. Substance use history: None reported Legal history: None Medical history: None Surgical history: None Allergies: No known drug allergies Family psychiatric history: Reports of anxiety and depression in both her mother and her father. Social history: Patient was born in [place] and raised by her biological parents who when the patient was 4 years old. She has 1 full brother and some half siblings as well. She had denied any history of sexual physical or emotional abuse during her childhood. She had described having a happy childhood and stated that she had graduated high school from [employer] with no college. She had reported no history of learning problems. She is currently and this is her first child who is 3 months old. She describes herself is currently being from her and stated that she had been living in her car for the last few days but plans on going to live with her mother when she is discharged. She had reported having worked previously in a variety of jobs but recently reports losing her job Meds NPU Home Medications Medication Instructions Recorded Confirmed Last Taken Type No Known Home Medications 05/19/24 05/19/24 Unknown History Allergies Allergy/AdvReac Type Severity Reaction Status Date / Time No Known Allergies Allergy Verified 05/19/24 07:56 PFSH NPU 2 PFSH: Medical History (Updated 05/19/24 @ 18:01 by Kolton Johnson MD) Vaginal delivery GBS carrier Family History Denies family history of Colon cancer Ovarian cancer Diabetes Heart disease Breast cancer Hypertension Uterine cancer Thyroid disease Social History Smoking and tobacco/nicotine status: never used tobacco/nicotine Mental Status Exam 2 MSE Comments: She is a casually dressed healthy white female who appeared her stated age. There was no clear evidence of any abnormal involuntary motor movements tics or tremors appreciated. Her speech was normal in regards to rate rhythm and prosody. There was mild psychomotor retardation. Her mood was described as depressed. Her affect was slightly restricted in range and mood congruent. Her thought process is linear logical and goal-directed. She had minimized any suicidal ideation at this time. She denied any homicidal ideation. She did not appear to be responding to internal stimuli. There was no clear evidence of delusional thinking. She was alert and oriented person place time and situation. Her recent remote memory were grossly intact. Her insight was partial. Her judgment appeared limited. Her impulse control appeared limited as well. Vitals/I&O/Wt Last Vital Signs Temp 97.5 F L 05/19/24 01:42 Pulse 82 05/19/24 01:48 Resp 20 H 05/19/24 01:42 BP 137/104 05/19/24 01:48 Pulse Ox 99 05/19/24 01:48 O2 Del Method Room Air 05/19/24 01:45 Weight last 48 hrs Weight 81.647 kg Data NPU 05/18/24 23:33 05/18/24 23:33 A&P Assessment and plan (1) MDD (major depressive episode), single episode, severe, no psychosis: (2) Social anxiety disorder: (3) Suicidal ideation: Plan 24-year-old female with a history of recent depression currently endorsing depressed mood admitted with suicidal ideation involuntarily with history of social anxiety disorder as well. Patient would likely benefit from a brief hospital stay with restarting of medications. #1.? Engage patient in individual milieu and group therapy. #2?? Recommend sober living treatment at the highest level of care to which the patient is willing to commit #3??? Restart zoloft 50mg daily to target anxiety and depression. #4?? TO-15 minute checks? #5?? Will attempt to gather collateral information Involuntary Hold Information 2 96 Hour Hold: 96 Hour Involuntary Admission: Yes 96 Hour Hold Ending Date: 05/24/24 96 Hour Hold Ending Time: 00:55 Attestations NPU 2 Medical Necessity Statement*: Inpatient hospitalization is medically necessary and deemed to ?be ?the clinically appropriate intervention ?at this time.? We will monitor/initiate medications and make changes as indicated.? The patient will be in the hospital for over 2 midnights.? The patient?s likely length of stay 2-3 days. Coding Level of Care Code Acute Code for g Fwd Diagnoses MDD (major depressive episode), single episode, severe, no psychosis F32.2 Social anxiety disorder F40.10 Suicidal ideation R45.851
[2024-05-19 14:00] VITALS: BP 140/70; PULSE 73; RESP 16; TEMP 37; O2SAT 98
[2024-05-19] MEDS: sertraline 50 mg Tablet PO (15:14)
[2024-05-19 20:15] VITALS: BP 102/67; PULSE 100; RESP 15; TEMP 36.7; O2SAT 99
[2024-05-20 06:00] VITALS: BP 120/68; PULSE 78; RESP 15; TEMP 36.4; O2SAT 98
[2024-05-20] MEDS: sertraline 50 mg Tablet PO (08:40)
--- NOTE | 2024-05-20 10:45 | P.NPUDS_ITS ---
Diagnoses at Discharge Discharge Diagnosis (1) MDD (major depressive episode), single episode, severe, no psychosis: Status: Acute (2) Social anxiety disorder: Status: Acute (3) Suicidal ideation: Status: Acute Reason for Visit Reason for Visit: MHE Brief History: History of Present Illness Smitha Sheehan is a 24 year old female who presented to the emergency department at [facility] by ambulance accompanied by police. The patient had apparently made threats to overdose on her medication during an argument that she was having with her current . The patient was admitted to the neuropsychiatric unit for further evaluation and treatment. She had reported that she has been to her but recently 2 days ago and states that she had been forced to reside in her car on the property. She had stated that she recently gave 3 months ago to their daughter. She reports that she had been told by her ex- that she needed to change her behavior in order for them to continue to remain together. She had endorsed that she had severe depression despite being on Zoloft through her and for a few weeks after giving to her daughter. She reported that she had discontinued the Zoloft but reports that her mood has been worse since she had stopped this medication. She had reported no previous history of suicide attempts. She had stated that she had battled depression for a few weeks and reported having low energy and low motivation. She reports no sleep continuity disruption. She did not endorse any current suicidal thoughts but stated that she was trying to get under her 's skin in order to anger him. She had stated that she has struggled with managing social anxiety since she was a child and reports that she feels uncomfortable in social situations and often feels as if she is the center of attention. She had reported that she frequently struggles with being anxious and feeling as if something bad were going to happen to her in social situations. She had reported no recent sleep continuity disruption. She had reported having increased stressors and reported that she had been crying more frequently and had been more sad leading to her losing her job recently. She denied any drug or alcohol use. She had denied having any thoughts of hurting anyone else. She denied any history of mayo. She denied any history of psychotic symptoms. She had denied any history of psychosis. Inpatient psychiatric history: None Outpatient psychiatric history: She had reported receiving psychotherapy at the age of 15 along with her brother due to anxiety. She had reported having previous trial of Paxil to manage anxiety started more than a year ago but eventually switched to Zoloft when she learned that she was . There is no history of suicide attempts. Substance use history: None reported Legal history: None Medical history: None Surgical history: None Allergies: No known drug allergies Family psychiatric history: Reports of anxiety and depression in both her mother and her father. Social history: Patient was born in [place] and raised by her biological parents who when the patient was 4 years old. She has 1 full brother and some half siblings as well. She had denied any history of sexual physical or emotional abuse during her childhood. She had described having a happy childhood and stated that she had graduated high school from [employer] with no college. She had reported no history of learning problems. She is currently and this is her first child who is 3 months old. She describes herself is currently being from her and stated that she had been living in her car for the last few days but plans on going to live with her mother when she is discharged. She had reported having worked previously in a variety of jobs but recently reports losing her job Hospital Course Hospital Course During the hospitalization, the patient had routine laboratory studies which were within normal limits except for a few outliers.? Additionally, there was a general medical evaluation which was also within normal limits and revealed no new acute processes.? At the time of discharge, lethality was denied. ? Mood and anxiety were well managed.? The patient endorsed a plan to avoid all drugs of abuse and follow up with the aftercare recommendations of the treatment team.? The patient was evaluated and deemed to be absent credible lethality and had achieved the maximum benefit from an inpatient hospitalization, and so was discharged. Zoloft was restarted at 50mg with a plan to increase to 75mg daily with eventual increase to 100mg in 2-4 weeks. She was agreeable to outpatient psychotherapy. Involuntary Hold Information 96 Hour Hold: 96 Hour Involuntary Admission: Yes 96 Hour Hold Ending Date: 05/24/24 96 Hour Hold Ending Time: 00:55 Mental Status Exam MSE Comments: She is a casually dressed healthy white female who appeared her stated age. There was no clear evidence of any abnormal involuntary motor movements tics or tremors appreciated. Her speech was normal in regards to rate rhythm and prosody. There was mild psychomotor retardation. Her mood was described as pretty good. Her affect was brighter on discharge. Her thought process is linear logical and goal-directed. She denied suicidal ideation with no plan or intent. She denied any homicidal ideation. She did not appear to be responding to internal stimuli. There was no clear evidence of delusional thinking. She was alert and oriented person, place, time, and situation. Her recent remote memory were grossly intact. Her insight was partial. Her judgment appeared fair. Her impulse control appeared fair. Discharge Data Studies Completed and Pending: Laboratory Results WBC 10.38 10^3/uL (3. 29-11.43) 05/18/24 23: RBC 4.71 10^6/uL (3.8 5-5.65) 05/18/24 23:33 Hgb 13.90 g/dL (11.27 -16.99) 05/18/24 23:33 Hct 42.4 % (36-47) 05/18/24 23: MCV 90.0 fl (85-98) 05/18/24 23: MCH 29.5 pg (27-33) 05/18/24 23: MCHC 32.8 g/dL (30-55) 05/18/24 23: RDW 13.5 % (12.1-15.1 ) 05/18/24 23:33 Plt Count 435 10^3/cmm (157 -399) H 05/18/24 23:33 MPV 9.2 fL (7.4-10.4) 05/18/24 23:33 Neut % (Auto) 76.1 % 05/18/24 23: Lymph % (Auto) 16.7 % 05/18/24 23:33 [place] % (Auto) 5.7 % 05/18/24 23:33 Eos % (Auto) 0.4 % 05/18/24 23:33 Baso % (Auto) 0.9 % 05/18/24 23:33 Neut # (Auto) 7.91 10^3/uL (1.8 -7.7) H 05/18/24 23:33 Lymph # (Auto) 1.7 10^3/uL (0.8- 4.8) 05/18/24 23: [place] # (Auto) 0.6 10^3/uL (0.2- 0.9) 09/26/24 23:33 Eos # (Auto) 0.0 10^3/uL (0.0- 0.8) 05/18/24 23:33 Baso # (Auto) 0.1 10^3/uL (0.0- 0.1) 05/18/24 23:33 Nucleated RBC % (a uto) 0 % 05/18/24 23: Nucleated RBCs # 0.0 /100WBC 05/18/24 23:33 Sodium 142 mmol/L (136-1 45) 05/18/24 23:33 Potassium 4.0 mmol/L (3.5-5 .1) 05/18/24 23: Chloride 104 mmol/L (98-10 7) 05/18/24 23: Carbon Dioxide 25 mmol/L (22-29) 05/18/24 23:33 Anion Gap 17.0 (5-19) 05/18/24 23: BUN 17 mg/dL (6-20) 05/18/24 23: Creatinine 0.8 mg/dL (0.5-0. 9) 05/18/24 23:33 GFR Calculation 89.7 mL/min (90-1 30) L 05/18/24 23:33 Glucose 105 mg/dL (65-115 ) 05/18/24 23:33 Calculated Osmolal ity 296 mOsm/kg (285- 295) H 05/18/24 23:33 Calcium 9.7 mg/dL (8.5-10 .5) 05/18/24 23:33 Total Bilirubin 0.3 mg/dL (0.15-1 .2) 05/18/24 23:33 AST 28 U/L (0-32) 05/18/24 23:33 ALT 43 U/L (0-33) H 05/18/24 23:33 Alkaline Phosphata se 112 U/L (35-105) H 05/18/24 23:33 Total Protein 8.3 g/dL (6.6-8.7 ) 05/18/24 23: Albumin 5.0 g/dL (3.5-5.2 ) 05/18/24 23: Globulin 3.3 g/dL (1.3-4.6 ) 05/18/24 23: TSH 3.23 uIU/mL (0.27 -4.20) 05/18/24 23:33 HCG, Qual Negative (Negati ve) 05/18/24 23:33 Urine Color Yellow (Yellow) 05/18/24 23:06 Urine Appearance Cloudy (CLEAR) A 05/18/24 23:06 Urine pH 5.5 (5-7) 05/18/24 23:06 Ur Specific Gravit y 1.036 (1.005-1.0 30) H 05/18/24 23:06 Urine Protein 2+ (Negative) A 05/18/24 23:06 Urine Glucose (UA) Negative (Normal ) 05/18/24 23:06 Urine Ketones Trace (Negative) 05/18/24 23:06 Urine Blood 3+ (Negative) A 05/18/24 23:06 Urine Nitrate Negative (Negati ve) 05/18/24 23:06 Urine Bilirubin Negative (Negati ve) 05/18/24 23:06 Urine Urobilinogen 1.0 mg/dL (Negati ve) 05/18/24 23:06 Ur Leukocyte Aura ase 2+ (Negative) A 05/18/24 23:06 Urine RBC >100 /hpf (0-2) H 05/18/24 23:06 Urine WBC 21-50 /hpf (0-5) H 05/18/24 23:06 Ur Squamous Epith Cells 11-20 /hpf (0-5) 05/18/24 23:06 Amorphous Sediment Not Reportable 05/18/24 23:06 Urine Bacteria 2+ /hpf (NONE) H 05/18/24 23:06 Hyaline Casts 2.87 /lpf 05/18/24 23:06 Salicylates < 0.3 mg/dL (3-10 ) L 05/18/24 23:33 Urine Opiates Scre en Negative ng/mL (N egative) 05/18/24 23:06 Acetaminophen < 5.0 ug/mL (10-3 0) L 05/18/24 23:33 Ur Barbiturates Sc reen Negative ng/mL (N egative) 05/18/24 23:06 Ur Phencyclidine S crn Negative ng/mL (N egative) 05/18/24 23:06 Ur Amphetamines Sc reen Negative ng/mL (N egative) 05/18/24 23:06 U Benzodiazepines Scrn Negative ng/mL (N egative) 05/18/24 23:06 Urine Cocaine Scre en Negative ng/mL (N egative) 05/18/24 23:06 U Marijuana (THC) Screen Positive ng/mL (N egative) H 05/18/24 23:06 Ethyl Alcohol < 10 mg/dL (0-10) 05/18/24 23:33 Vitals: Last Vital Signs Temp 97.5 F L 05/20/24 06:00 Pulse 78 05/20/24 06:00 Resp 15 05/20/24 06:00 BP 120/68 05/20/24 06:00 Pulse Ox 98 05/20/24 06:00 O2 Del Method Room Air 05/20/24 06:00 Discharge Plan Discharge Patient Disposition: Home Condition: Stable Prescriptions: New Zoloft 50 mg tablet 75 mg PO DAILY Qty: 45 1RF Discharge Orders: Discharge Order (Routine); Ordered 05/20/24 Ordered By: Kolton Johnson Referrals: [facility] [Outside] - 05/22/24 9:30 am (Initial appointment. ) Paoal Augustin FNP [Primary Care Provider] - Discharge Diet: Usual diet Discharge Activity: Resume usual activity Patient Instructions: Depression (DC), Help Prevent Suicide (DC), Anxiety (DC), Suicide Prevention (DC), Opioid Safety Discharge Attestations NPU Time Spent in Discharge Care*: less than 30 min Coding Level of Care Code Acute Code for g Fwd Diagnoses MDD (major depressive episode), single episode, severe, no psychosis F32.2 Social anxiety disorder F40.10 Suicidal ideation R45.853
[2024-05-20 10:47] VITALS: BP 120/68; PULSE 78; RESP 15; TEMP 36.4; O2SAT 98
== END 2024-05-20 11:45 | disposition home or self-care (01) | DRG 885 ==
LOC: ER 05-19 00:41 → NP 05-19 01:07
PROVIDERS: Admitting Provider Psychiatry & Neurology Psychiatry; Emergency Provider Emergency Medicine; PCP Nurse Practitioner Family; Visit Provider Psychiatry & Neurology Psychiatry
DX: F32.2 Major depressive disorder, single episode, severe without psychotic features (principal); R45.851 Suicidal ideations; Z59.02 Unsheltered homelessness; F40.10 Social phobia, unspecified; Z63.5 Disruption of family by separation and divorce; Z56.0 Unemployment, unspecified
CPT/HCPCS: 36415; 80053; 80306; 80307; 81001; 84443; 84703; 85025; 93005; 97165